=== PATIENT | female | born 1990 | race Caucasian/White ===

== ENCOUNTER 2021-07-08 04:21 | Day surgery (SDC) | payer OTHER ==
[2021-07-05 15:40] VITALS: BMI 25.9
[2021-07-08] MEDS ORDERED: KETAMINE HCL 200 MG/20 ML VIAL ONE (10:25)
[2021-07-08] MEDS ORDERED: MIDAZOLAM HCL 2 MG/2 ML SINGLE DOSE VIAL ONE (10:25)
[2021-07-08] MEDS ORDERED: PROPOFOL 20 ML ONE ×2 (10:25→12:10)
[2021-07-08] MEDS ORDERED: IODINE/POTASSIUM IODIDE 5%/10% 14 ML BOTTLE NR ONE (10:50)
[2021-07-08] MEDS ORDERED: FERRIC SUBSULFATE 500 ML BOTTLE TP ONE (10:51)
[2021-07-08] MEDS ORDERED: ROCURONIUM BROMIDE 50 MG/5 ML SYRINGE ONE ×2 (11:08→14:01)
[2021-07-08] MEDS ORDERED: ACETAMINOPHEN 500 MG TABLET (FP) PO PRN (11:17)
[2021-07-08] MEDS ORDERED: fentaNYL CITRATE 250 MCG/5 ML VIAL ONE (12:05)
[2021-07-08] MEDS ORDERED: IBUPROFEN 400 MG TABLET (FP) PO PRN (12:08)
[2021-07-08] MEDS ORDERED: ACETAMINOPHEN 325 MG TABLET (FP) PO PRN (12:08)
[2021-07-08] MEDS ORDERED: NEOSTIGMINE METHYLSULFATE 0.5 MG/1 ML - 10 ML MDV ONE (12:10)
[2021-07-08 14:08] VITALS: BP 128/78; PULSE 62; TEMP 98.2
== END 2021-07-08 13:00 | disposition home or self-care (01) ==
LOC: JASU-SURG 04:21
PROVIDERS: ATTEND Specialist
PROC: 0UBC7ZX Excision of Cervix, Via Natural or Artificial Opening, Diagnostic (ICD-10-PCS; 2021-07-08)
PROC: 0UBC8ZX Excision of Cervix, Via Natural or Artificial Opening Endoscopic, Diagnostic (ICD-10-PCS; principal; 2021-07-08 09:30)
DX: N87.0 Mild cervical dysplasia (principal)
CPT/HCPCS: 81025; 88305-TC; 88307-TC; 94760